=== PATIENT | male | born 1970 | race African-American/Black ===

== ENCOUNTER 2023-11-07 14:43 | Emergency (ER) | payer OTHER ==
[~2023-11-07] VITALS: Ht 175.3 cm; Wt 92.3 kg
[~2023-11-07 14:43] MED LIST: NORPTMEDS CO
[2023-11-07] MEDS ORDERED: AUG875T PO (15:58)
[2023-11-07] MEDS ORDERED: OFL50TS OT (15:58)
[2023-11-07] MEDS ORDERED: IBUP-1454 PO (15:58)
[2023-11-07 16:30] VITALS: BP 130/88; PULSE 93; RESP 16; TEMP 98.2; O2SAT 97
== END 2023-11-07 16:50 | disposition home or self-care (01) ==
LOC: ER 14:43
DX: H66.92 Otitis media, unspecified, left ear (principal); F17.210 Nicotine dependence, cigarettes, uncomplicated; Z59.00 Homelessness unspecified

== ENCOUNTER 2024-03-25 11:57 | Emergency (ER) | payer OTHER ==
[~2024-03-25] VITALS: Ht 175.3 cm; Wt 98.8 kg
[~2024-03-25 11:57] MED LIST changes: +AUG875T PO; +IBUP-1454 PO; +OFL50TS OT
[2024-03-25 13:00] VITALS: BP 154/86; PULSE 65; RESP 16; TEMP 99.5; O2SAT 96
[2024-03-25] MEDS ORDERED: CEPH500C PO (13:41)
== END 2024-03-25 13:56 | disposition home or self-care (01) ==
LOC: ER 11:57
DX: S51.011A Laceration without foreign body of right elbow, initial encounter (principal); F17.210 Nicotine dependence, cigarettes, uncomplicated; Z59.00 Homelessness unspecified; Z79.899 Other long term (current) drug therapy; W17.89XA Other fall from one level to another, initial encounter; Y93.89 Activity, other specified; Y92.89 Other specified places as the place of occurrence of the external cause; Y99.8 Other external cause status